=== PATIENT | female | born 1990 | race Caucasian/White ===

== ENCOUNTER 2017-05-14 14:47 | Emergency (ER) | payer OTHER ==
[~2017-05-14 14:47] MED LIST: HYDR5SUS PO
--- NOTE | 2017-05-14 15:38 | PHYS DOC ---
General Chief Complaint: ABDOMINAL PAIN Stated Complaint: MULTIPLE COMPLAINTS Time Seen by MD: 14:50 Source: patient Exam Limitations: no limitations Problems: History of Present Illness Initial Comments Patient is a 27-year-old female who comes to the ED complaining of left flank and pelvic pain. Patient is 0 and in an unmarried monogamous relationship for the past 7 years no contraception or barrier protection. Patient states that for the last week she's had worsening lower abdomen/pelvic pain with new thick whitish discharge. She's had dyspareunia denies any new odor or bleeding. She has felt as if her lower abdomen has been aching and swollen/bloated and today symptoms radiated to her left side/flank. No symptoms with urination no bowel changes and she denies any fever chills sweats or body aches no nausea or vomiting. She has a well exam scheduled with her dianetic counselor for the of this month and denies any history of abnormal Paps or STI. Timing/Duration: week, changing over time Severity/Quality: moderate, burning, cramping, throbbing Location: suprapubic, vaginal Radiation: left flank Activities at Onset: none Prior Genitourinary Problems: none Sexual [place] History: less than 2 months ago, single partner Modifying Factors: worse with movement, worse with palpation, improves with other Associated Symptoms: abdominal pain, other Allergies: Coded Allergies: No Known Drug Allergies (Unverified , 03/15/16) Past Medical History Medical History: other (anxiety, asthma, vertigo) Surgical History: no surgical history Para: 0 : 0 Social History Smoker: non-smoker Alcohol: none Drugs: none Review of Systems Constitutional: denies diaphoresis, denies fever, denies malaise Respiratory: denies cough, denies shortness of breath, denies wheezing Cardiovascular: denies chest pain, denies palpitations, denies syncope Gastrointestinal: see HPI Genitourinary: see HPI Musculoskeletal: see HPI, denies joint pain, denies joint swelling, denies muscle pain, denies muscle stiffness, denies neck pain Psychiatric/Neurological: denies headache, denies numbness, denies paresthesia , denies weakness Hematologic/Lymphatic: denies anemia, denies blood clots, denies easy bleeding Physical Exam General Appearance: moderate distress (very anxious on arrival concerned she may have PID) HEENT: PERRL/EOMI, normal ENT inspection Neck: non-tender, supple Cardiovascular/Respiratory: normal peripheral pulses, normal breath sounds Gastrointestinal: normal bowel sounds, non tender, soft Rectal: deferred Pelvic: external exam normal, no cerv. motion tender, no masses, cervicitis, discharge (scant thick and white), other (RN present) Back: no vertebral tenderness, CVA tenderness (L) (very mild) Extremities: non-tender, normal inspection, no pedal edema, no calf tenderness Neurologic/Psychiatric: produce manager II-XII nml as tested, no motor/sensory deficits, alert, oriented x 3, other (very anxious) Skin: normal color, warm/dry Orders, Labs, Meds Urine test negative RUN DATE: 05/14/17 [facility] *LIVE* PAGE 1 RUN TIME: 1605 Specimen Inquiry PATIENT: DONTE RAWLS ACCT: [id number] LOC: ER U : [id number] AGE/SX: 27/F ROOM: REG : 05/14/[address]: LEN ROGERS DO : 1990 BED: DIS : STATUS: REG ER TLOC: SPEC #: [id number] VIVIANA: 05/14/17 STATUS: BINA REQ #: [id number] RECD: 05/14/[address] [facility] [address]: LEN ROGERS DO SOURCE: VAGINAL ENTR: 05/14/[address]: JORGE,STAFF [facility]: ORDERED: WET PREP COMMENTS: Has specimen been collected/obtained? Y Procedure Result WET PREP Final YEAST NONE SEEN TRICHOMONAS NONE SEEN CLUE CELLS NONE SEEN WBCS OCCASIONAL RBCS NO RBCS SEEN SQUAMOUS EPS MODERATE Departure Time of Disposition: 16:43 Disposition: 01 HOME, SELF-CARE Diagnosis: abdominal pain Condition: GOOD Patient Instructions: Cervicitis, [id number] Additional Instructions: Please review the patient education materials given by ED staff. Off work today note given. You received Rocephin and Zithromax in the emergency department that should resolve any potential infections related to pending tests. Barrier protection and or pelvic rest until follow-up with your doctor. [id number] Tylenol and ibuprofen as needed. Follow-up with your doctor in 7-10 days for recheck and to go over results from today's testing. Return to ED with new or changing symptoms. LEN ROGERS DO May 14, 2017 15:38
[2017-05-14 16:19] LABS: BILIRUBIN,URINE NEG (NEG); CLARITY,URINE CLEAR; COLOR,URINE YELLOW; GLUCOSE,URINE NEG (NEG)
[2017-05-14 16:20] LABS: BACTERIA,URINE 0 /HPF (0-FEW); NITRITE,URINE NEG (NEG); RBC,URINE OCC /HPF (0-2); SQUAMOUS EPITHELIAL CELL,UR MANY /LPF; UROBILINOGEN,URINE 0.2 mg/dL (0.2 mg/dL); WBC,URINE RARE /HPF (0-4)
[2017-05-14] MEDS ORDERED: AZITHROMYCIN 250 MG TABLET. ONE (16:52)
[2017-05-14 17:07] VITALS: BP 121/66
[2017-05-14] MEDS ORDERED: cefTRIAXone IM 1 GM VIAL IM ONE (17:15)
[2017-05-14] MEDS ORDERED: AZITHROMYCIN 250 MG TABLET. PO ONE (17:15)
[2017-05-15 20:10] LABS: CHLAMYDIA PROBE Negative (Negative)
== END 2017-05-14 17:07 | disposition home or self-care (01) ==
LOC: ER 14:47
DX: R10.2 Pelvic and perineal pain (principal); J45.909 Unspecified asthma, uncomplicated; F41.9 Anxiety disorder, unspecified
CPT/HCPCS: 36415; 81001; 81025; 87480; 87491; 87510; 87591; 87660; 96372; 99284; J0456; J0696; Q0111